=== PATIENT | female | born 1945 | race Caucasian/White ===

== ENCOUNTER 2017-10-09 15:17 | Outpatient (CLI) | payer MEDICARE, OTHER ==
--- NOTE | 2017-10-09 16:29 | MRI ---
MRI LUMBAR SPINE NONCONTRAST: 10/09/17 HISTORY: Low back pain. Lumbar radiculopathy. FINDINGS: Radiographs are not available for direct correlation, therefore, the lowest lumbar type vertebra gabriel l be designated as L5, with the remainder numbered accordingly. The conus medullaris has a normal talia earance. Vertebral body heights are maintained. There is desiccation of all intervertebral discs. Mil d discogenic end plate changes within the bone marrow. T12-L1: Very mild disc bulge. Thecal sac and neural foramina are patent. L1-2: Disc space narrowing. Mild posterior disc bulge. Thecal sac is patent. Degenerative changes wit h mild stenosis of each neural foramen. L2-3: Minimal disc bulge. Thecal sac is patent. Degenerative changes of the facets. Mild bilateral fo raminal stenosis. L3-4: Very mild disc bulge. Thecal sac is patent. Degenerative changes with mild stenosis of each trina ral foramen. L4-5: Minimal degenerative spondylosis. Disc space narrowing. 0.6 cm synovial cyst projects into the left side of the central canal from the left facet. Prominent osseous hypertrophy of the right facet. Posterior disc bulge and circumferential degenerative changes with severe stenosis of the central ca nal. Severe right and moderate left foraminal stenosis. L5-S1: Mild disc bulge. Thecal sac is patent. Degenerative changes with moderate bilateral foraminal stenoses. IMPRESSION: Multilevel degenerative changes. Severe central canal and foraminal stenoses are apparent at the L4-5 level. POS: [facility]
== END 2017-10-09 15:18 | disposition home or self-care (01) ==
LOC: MRI 15:17
PROVIDERS: ATTEND Neurological Surgery
DX: M47.26 Other spondylosis with radiculopathy, lumbar region (principal); M99.83 Other biomechanical lesions of lumbar region; M48.061 Spinal stenosis, lumbar region without neurogenic claudication
CPT/HCPCS: 72148

== ENCOUNTER 2017-12-03 06:13 | Observation (INO) | payer MEDICARE, OTHER ==
--- NOTE | 2017-12-03 03:14 | HP ---
HISTORY OF PRESENT ILLNESS: Ms. Montoya is a pleasant woman returning now for evaluation of lumbar rad iculopathy and while we discussed this also brings up some cervical spine chronic pain issues. She h as bilateral S1 radicular pain that go down to her feet associated with numbness in the bilateral mary es of her feet. This limits her ability to ambulate significant distances in any meaningful way. Mario fernandez has treated this in the past with several different modalities, and actually had a discussion with Dr. Buckner back in 2013 regarding potential surgical intervention. She has since that time suffered s troke and has recovered sufficiently to a point where she would like to now address her back. She anderson s an MRI from [place] that reveals severe central canal stenosis from L4 to S1 with what looks to be grade I spondylolisthesis at L4-L5 with significant distraction of the joint at that level, likely indicating some instability. She hopes to again address this surgically if possible. PAST MEDICAL HISTORY: Significant for atrial fibrillation, CVA, hypertension, coronary arterial dise ase, hypothyroidism, bladder dysfunction, and seasonal allergies. CURRENT MEDICATIONS: Xarelto, Lipitor, losartan, metoprolol, hydrochlorothiazide, levothyroxine, oxy butynin, furosemide, Flonase, , and [place]. ALLERGIES: AMIODARONE, DIGOXIN, CIPRO, WARFARIN, LOVENOX, ASPIRIN, TAPE. PAST SURGICAL HISTORY: Tubal ligation, hysterectomy, cataract surgeries, bilateral bladder sling, ch olecystectomy, appendectomy, and sinus surgery. PHYSICAL EXAMINATION: The patient is alert and oriented x3. Gait is severely antalgic and slow. Lo wer extremity motor exam is normal. ASSESSMENT: Lumbar radiculopathy and neurogenic claudication. PLAN: Dr. Buckner met with the patient, reviewed imaging, and advocated for L4 to S1 decompression wit h an L4-L5 fusion. He explained to the patient the risks, benefits, and alternatives of the procedur e. The patient expressed understanding and would like to move forward with surgery as discussed. I do believe the patient is mentally competent and capable of making medical decisions for herself. We will move forward with surgery as planned. Long Mccollum PA-C dictating for Dr. Buckner.
[2017-12-03] MEDS ORDERED: CEFAZOLIN/Water 2 GM/20 ML SYRINGE ONE (07:18)
[2017-12-03 08:14] LABS: Hemoglobin 13.3 g/dL (12.0-16.0); Mean Corpuscular HGB CONC 34.1 g/dL (32.0-36.0); Mean Corpuscular Hemoglobin 31.7 pg (27.0-31.0); Platelet Count 414 thou/uL (130-400); RBC Distribution Width 13.3 % (11.5-14.5); Red Blood Cell (RBC) Count 4.18 mill/uL (4.20-5.40); White Blood Cell (WBC) Count 7.1 thou/uL (4.8-10.8)
[2017-12-03] MEDS ORDERED: Bupivacaine HCl 0.5%/Epinephrine 1:200,000/PF 30 ml Vial ONE (08:41)
[2017-12-03] MEDS ORDERED: Midazolam HCl 2 mg/2 ml Vial ONE (08:48)
[2017-12-03] MEDS ORDERED: Fentanyl 100 MCG/2 ML VIAL ONE ×3 (08:58→12:57)
[2017-12-03 10:43] LABS: Anion Gap 16 mmol/L (10-20); BUN (Urea Nitrogen) 18 mg/dL (9.8-20.1); Calc. Creatinine Clearance 77 mL/min (70-130); Calcium 10.1 mg/dL (7.8-10.44); Carbon Dioxide 25 mmol/L (23-31); Chloride 99 mmol/L (98-107); Estimated GFR-MDRD 59; Glucose 75 mg/dL (83-110); Potassium 3.5 mmol/L (3.5-5.1); Sodium 136 mmol/L (136-145)
[2017-12-03] MEDS ORDERED: Morphine Sulfate 2 MG/ML SYRINGE SLOW IVP PRN (11:04)
[2017-12-03] MEDS ORDERED: Promethazine HCl 25 MG/ML VIAL SLOW IVP PRN (11:04)
[2017-12-03] MEDS ORDERED: Meperidine HCl/PF 25 MG/ML VIAL SLOW IVP PRN (11:04)
[2017-12-03] MEDS ORDERED: Ondansetron HCl/PF 4 MG/2 ML Vial IVP PRN (11:04)
[2017-12-03] MEDS ORDERED: Promethazine HCl 25 MG/ML VIAL IM PRN (11:04)
[2017-12-03] MEDS ORDERED: HYDROmorphone 2 MG/ML VIAL SLOW IVP PRN (11:04)
[2017-12-03] MEDS ORDERED: PHENYLEPHRINE-NS 100 MCG/ML 10 ML SYRINGE ONE (11:11)
[2017-12-03] MEDS ORDERED: Metoclopramide HCl 10 MG/2 ML VIAL ONE (11:11)
[2017-12-03] MEDS ORDERED: PROPOFOL 200 MG/20 ML VIAL ONE (11:11)
[2017-12-03] MEDS ORDERED: Lidocaine 1% PF 5 ML VIAL ONE (11:11)
[2017-12-03] MEDS ORDERED: Ondansetron HCl/PF 4 MG/2 ML Vial ONE ×2 (11:11→12:05)
[2017-12-03] MEDS ORDERED: Glycopyrrolate 0.2 MG/ML 5 ML SYRINGE ONE (11:11)
--- NOTE | 2017-12-03 12:40 | OP ---
DATE OF PROCEDURE: 12/03/2017 SURGEON: Stevie Buckner M.D. DINKEY ENGINEER: Long Mccollum PA-C INDICATION: Pain. PREOPERATIVE DIAGNOSES: Lumbar stenosis, lumbar radiculopathy and lumbar spondylolisthesis. PROCEDURE: L4 through S1 lumbar decompression, L4-5 lumbar fusion, placement of allograft, placement of autograft. ANESTHESIA: General. PROCEDURE IN DETAIL: The patient was brought into the operating room and placed under general anesth esia. She was flipped from a supine to prone position on the operating room table. A linear incisio n was planned over the L4-S1 segments. After prepping and draping and after an appropriate operative pause, the incision was created. Soft tissues were swept away from midline. Self-retaining retract ors were placed in the wound for optimal exposure. After confirming the appropriate levels with C-ar m fluoroscopy, the spinous processes of L4 and L5 were removed. Using high-speed cutting drill bit a s well as 2, 3 and 4-mm Kerrisons, laminectomies were performed spanning L4-S1. There was a copious amount of epidural fat present at the L5 segment which was carefully removed. After decompressing th e central canal and lateral recesses, pedicle screws were placed in the pedicles of L4 and L5 bilater ally with the aid of C-arm fluoroscopy. After placement of the screws, an intraoperative 3-D CT scan was performed to confirm placement of hardware. Rods were then placed across the screw heads and th en final tightened. Allograft and autograft material was then placed within the lateral confines of the instrumentation construct. The wound was irrigated. Hemostasis was maintained throughout. The wound was then closed in anatomic layers and a pressure dressing was applied. There were no known pr ocedural complications.
[2017-12-03] MEDS ORDERED: Promethazine HCl 25 MG/ML VIAL ONE (13:41)
[2017-12-03 15:03] VITALS: BMI 32.5
[2017-12-03] MEDS ORDERED: HYDROcodone/Acetaminophen 10/325 mg Tablet PO PRN ×2 (15:19)
[2017-12-03] MEDS ORDERED: Morphine 4 MG/ML Carpuject SLOW IVP PRN (15:19)
[2017-12-03] MEDS ORDERED: diphenhydrAMINE 50 MG/ML VIAL IVP PRN (15:19)
[2017-12-03] MEDS ORDERED: diphenhydrAMINE 25 MG CAP PO PRN (15:19)
[2017-12-03] MEDS ORDERED: Acetaminophen 650 MG Suppository PR PRN (15:19)
[2017-12-03] MEDS ORDERED: Acetaminophen 325 MG TAB PO PRN (15:19)
[2017-12-03] MEDS ORDERED: Ondansetron HCl/PF 4 MG/2 ML Vial IM PRN (15:21)
[2017-12-03] MEDS ORDERED: HYDROcodone/Acetaminophen 5/325 mg Tablet PO PRN ×2 (16:36→18:16)
[2017-12-03] MEDS: Sodium Chloride 0.9% 1,000 ML IV SCH (18:11)
[2017-12-03] MEDS ORDERED: Oxymetazoline HCl 0.05% ( 15 ML ) NASAL PRN (18:14)
[2017-12-03] MEDS ORDERED: ALPRAZolam 0.5 MG TAB PO PRN (18:15)
[2017-12-03] MEDS ORDERED: Hyoscyamine Sulfate SL 0.125 mg Tablet SL PRN (18:17)
[2017-12-03] MEDS: Metoprolol Tartrate 50 MG TAB PO SCH (20:29)
[2017-12-03] MEDS: Losartan 25 MG TAB PO SCH (20:29)
[2017-12-03] MEDS: Potassium Chloride 10 MEQ TAB PO SCH (20:30)
[2017-12-03] MEDS: HYDROcodone/Acetaminophen 5/325 mg Tablet PO PRN (20:31)
[2017-12-03] MEDS ORDERED: Atorvastatin Calcium 10 MG TAB PO SCH (21:00)
[2017-12-03] MEDS: CEFAZOLIN/Water 2 GM/20 ML SYRINGE SLOW IVP SCH (22:17)
[2017-12-04] MEDS: Sodium Chloride 0.9% 1,000 ML IV SCH (02:15)
[2017-12-04] MEDS: HYDROcodone/Acetaminophen 5/325 mg Tablet PO PRN (02:37)
[2017-12-04] MEDS ORDERED: Levothyroxine Sodium 100 MCG TAB PO SCH (06:00)
[2017-12-04] MEDS: CEFAZOLIN/Water 2 GM/20 ML SYRINGE SLOW IVP SCH (06:36)
[2017-12-04] MEDS ORDERED: Ondansetron HCl/PF 4 MG/2 ML Vial SLOW IVP PRN (08:15)
[2017-12-04] MEDS ORDERED: Furosemide 40 MG TAB PO SCH (09:00)
[2017-12-04] MEDS ORDERED: Hydrochlorothiazide 25 MG TAB PO SCH (09:00)
[2017-12-04] MEDS ORDERED: Oxybutynin ER 5 MG TAB PO SCH (09:00)
[2017-12-04] MEDS ORDERED: Magnesium Oxide 400 MG TAB PO SCH (09:00)
[2017-12-04] MEDS ORDERED: Scopolamine 1.5 mg/72 hour Patch TOP SCH (10:00)
[2017-12-04] MEDS: Metoprolol Tartrate 50 MG TAB PO SCH (10:14)
[2017-12-04] MEDS: tiZANidine HCl 4 MG TAB PO PRN ×2 (10:14→16:07)
[2017-12-04] MEDS: Losartan 25 MG TAB PO SCH (10:55)
[2017-12-04] MEDS: Potassium Chloride 10 MEQ TAB PO SCH (10:58)
[2017-12-04] MEDS ORDERED: Ondansetron ODT 4 MG TAB PO PRN (16:30)
[2017-12-04 17:05] VITALS: BP 148/79; TEMP 97.7
[2017-12-04] MEDS ORDERED: Ketorolac Tromethamine 30 MG/ML VIAL IVP SCH (18:00)
--- NOTE | 2017-12-07 20:24 | EKG ---
Test Reason : PREOP Blood Pressure : / mmHG Vent. Rate : 063 BPM Atrial Rate : 063 BPM P-R Int : 146 ms QRS Dur : 084 ms QT Int : 414 ms P-R-T Axes : 065 026 018 degrees QTc Int : 423 ms Normal sinus rhythm Normal ECG No previous ECGs available Confirmed by Ajit GARRISON ([id number]) on 12/07/2017 8:24:08 PM Referred By: Wong SEGURA Confirmed By:Ajit GARRISON
== END 2017-12-04 17:22 | disposition home or self-care (01) ==
LOC: SDC 06:13 → SURG A 14:46
PROVIDERS: ADMIT Neurological Surgery; ATTEND Neurological Surgery
PROC: 0SG00J1 Fusion of Lumbar Vertebral Joint with Synthetic Substitute, Posterior Approach, Posterior Column, Open Approach (ICD-10-PCS; principal; 2017-12-03)
PROC: 01NB0ZZ Release Lumbar Nerve, Open Approach (ICD-10-PCS; 2017-12-03)
DX: M48.062 Spinal stenosis, lumbar region with neurogenic claudication (principal); M54.16 Radiculopathy, lumbar region; M43.16 Spondylolisthesis, lumbar region; I48.91 Unspecified atrial fibrillation; I10 Essential (primary) hypertension; I25.10 Atherosclerotic heart disease of native coronary artery without angina pectoris; E03.9 Hypothyroidism, unspecified; Z86.73 Personal history of transient ischemic attack (TIA), and cerebral infarction without residual deficits; Z79.01 Long term (current) use of anticoagulants; Z79.899 Other long term (current) drug therapy; Z88.8 Allergy status to other drugs, medicaments and biological substances; Z91.048 Other nonmedicinal substance allergy status
CPT/HCPCS: 20930; 20937; 22612; 22840; 51701; 63047; 76001; 80048; 85027; 86850; 86900; 86901; 93005; 96361 ×2; 96372; 96374; 96375 ×2; 96376 ×2; 97110; 97116; 97530; C1713 ×2; G0378; G8978; G8979; 93010; J0131; J0670; J1200; J2001; J2250; J2405; J2550; J2704; J2765; J3010; Q0162